=== PATIENT | male | born 1990 | race Caucasian/White ===

== ENCOUNTER 2016-10-07 01:42 | Emergency (ER) | payer BC, OTHER ==
--- NOTE | ~2016-10-07 | CT105 ---
[facility] A Service of [facility] [place] RADIOLOGY TEXT RESULTS PATIENT: YASMEEN CROWLEY LOCATION: SED : [birth year] UNIT #: [id number] AGE: [address]: Chema Mariscal MD SEX: M ORDER DR: [id number] [place] [id number] E MR#: [id number] #: [id number] NAME: YASMEEN CROWLEY : 1990 SEX: M STUDY DATE/TIME: 10/07/2016 01:53 UNIT: SED ROOM: STUDY DESCRIPTION: CT Pelvis W Cont Attending Physician: Chema Mariscal M.D. Ordering Physician: Ava Thompson A.P.R.N. MEDICAL IMAGING REPORT This report is preliminary unless electronic signature is present. EXAM CT pelvis 10/07/2016 at 01:53 INDICATION Large painful bump on left lower buttock since 10/03/2016. Fever and body aches, as well. Pain rates 8/10. TECHNIQUE Axial images were obtained through the pelvis following IV contrast administration. Multiplanar reformats were obtained. No comparison. This CT examination was performed with one or more of the following radiation dose reduction techniques: automatic exposure control, adjustment of mA and/or kV according to patient size, and iterative reconstruction. FINDINGS The unopacified GI tract is normal including the appendix. Urinary bladder is normal. No free fluid. There is a left perianal abscess measuring about 3.3 x 3.8 x 2.3 cm. There is adjacent cellulitis. IMPRESSION Left side perianal abscess measuring 3.3 x 3.8 x 2.3 cm with some adjacent cellulitis. The remainder of the pelvis CT is normal. Dictated by... Michael Harden Jr., M.D. THIS IS AN ELECTRONICALLY VERIFIED REPORT Michael Harden Jr., M.D. at 10/10/2016 7:22 AM SANDRA/partha [facility] A Service [facility] RADIOLOGY TEXT RESULTS PATIENT: YASMEEN CROWLEY LOCATION: [facility] [place] : [birth year] UNIT #: [id number] AGE: [address]: Chema Mariscal MD SEX: M ORDER DR: TD: 10/07/2016 07:27 JOB #: [id number] MEDICAL IMAGING REPORT Page 1 of 1
[2016-10-07 01:06] LABS: BASOPHIL# 0.1 X10e3 (0-0.3); BASOPHIL% 0.4 % (0-2.5); EOSINOPHIL% 0.1 % (0.0-7.0); HEMATOCRIT 42.7 % (38.0-50.0); HEMOGLOBIN 14.5 gm/dL (13.0-16.0); LYMPHOCYTE# 1.7 X10e3 (1.0-3.5); LYMPHOCYTE% 12.6 % (17.0-45.0); MEAN CELL VOLUME 88.4 FL (83-96); MEAN CORPUSCULAR HEMOGLOBIN 30.1 PG (28-34); MEAN CORPUSCULAR HGB CONC 34.1 g/dL (30-36); MEAN PLATELET VOLUME 8.1 FL (6.5-11.5); MONOCYTE# 0.9 X10e3 (0-1.0); MONOCYTE% 6.8 % (3.0-12.0); NEUTROPHIL# 10.9 X10e3 (1.5-7.1); NEUTROPHIL% 80.1 % (40-75); PLATELET COUNT 266 X10e3 (140-420); RED BLOOD COUNT 4.83 X10e (3.90-5.60); RED CELL DISTRIBUTION WIDTH 12.4 % (11.0-15.5); WHITE BLOOD COUNT 13.6 X10e3 (4.0-10.5)
[2016-10-07 01:10] LABS: DIFF IND NO
[2016-10-07 01:26] LABS: ALBUMIN SERUM 4.7 g/dL (3.5-5.0); BILIRUBIN,TOTAL 1.2 mg/dL (0.2-2.0); GLOM FILT RATE Estimated 104.9 mL/min (>60); POTASSIUM 3.4 mmol/L (3.5-5.1); PROTEIN TOTAL SERUM 8.1 g/dL (6.0-8.3)
[~2016-10-07 01:42] MED LIST: CONCERTA PO
[2016-10-07 01:46] LABS: INR 1.4; PROTHROMBIN TIME (PATIENT) 15.4 SECONDS (9.5-12.4)
[2016-10-07 01:54] LABS: PARTIAL THROMBOPLASTIN TIME 33.2 SECONDS (25.6-38.1)
== END 2016-10-07 03:15 | disposition home or self-care (01) ==
LOC: SED 01:42
PROVIDERS: Nurse Practitioner Family
DX: K61.0 Anal abscess (principal)
CPT/HCPCS: 10060; 46040; 72193; 80053; 83605; 85025; 85610; 85730; 87040; 87070; 87077; 87186; 87205; 99284; Q9967

== ENCOUNTER 2016-10-09 11:46 | Emergency (ER) | payer BC | END 2016-10-09 11:50 | disposition home or self-care (01) | LOC: SED 11:46 | DX: Z48.01 Encounter for change or removal of surgical wound dressing (principal); F90.9 Attention-deficit hyperactivity disorder, unspecified type; Z79.899 Other long term (current) drug therapy | CPT/HCPCS: 99282 ==